=== PATIENT | female | born 1945 | race Asian ===

== ENCOUNTER 2018-01-28 15:01 | Emergency (ER) | payer MEDICARE, OTHER | END 2018-01-28 17:46 | disposition home or self-care (01) | LOC: M ED 15:01 | DX: S42.025A Nondisplaced fracture of shaft of left clavicle, initial encounter for closed fracture (principal); W08.XXXA Fall from other furniture, initial encounter; Y92.098 Other place in other non-institutional residence as the place of occurrence of the external cause; I10 Essential (primary) hypertension; K21.9 Gastro-esophageal reflux disease without esophagitis; F41.9 Anxiety disorder, unspecified; F32.9 Major depressive disorder, single episode, unspecified; Z85.3 Personal history of malignant neoplasm of breast; Z90.10 Acquired absence of unspecified breast and nipple; Z88.0 Allergy status to penicillin; Z79.899 Other long term (current) drug therapy; Z79.82 Long term (current) use of aspirin; Z79.84 Long term (current) use of oral hypoglycemic drugs | CPT/HCPCS: 73030 ==